=== PATIENT | male | born 1940 | race Caucasian/White ===

== ENCOUNTER 2021-06-24 19:52 | Inpatient (IN) | payer MEDICARE ==
[2021-06-24] MEDS ORDERED: ETOMIDATE 2 MG/ML 10 ML VIAL IVP STA ×2 (20:04→20:13)
[2021-06-24] MEDS ORDERED: NOREPINEPHRINE 32 MG in SODIUM CHLORIDE 0.9% 218 ML IV STA (20:17)
[2021-06-24 20:22] LABS: Glucose,Whole Blood 117 mg/dL (75-99)
--- NOTE | 2021-06-24 20:29 | ED ---
CPR HPI - General Chief Complaint: Cardiac Arrest/CPR Stated Complaint: Cardiac Arrest Time Seen by Provider: 06/24/21 20:29 Source: EMS Mode of arrival: EMS - History of Present Illness Initial Comments: Jono is an 81-year-old male with a history of dementia, congestive heart fa ilure with an ejection fraction of 15%, recent hospitalization at [facility] for rhabdomyolysis after being found down in his apartment. Patient was hospitalized apparently for approximately 9 days discharge 3 days ago to [facility]. Today patient's family was at bedside eating with the patient when he became unresponsive. Family states that his eyes became glossed over he opened his mouth and took a gasping breath and was unresponsive. Nursing staff was called to bedside and AED was applied patient received 2 shocks and CPR. Upon arrival of EMS the patient was unresponsive but had a pulse. Patient was transported to our hospital for further evaluation. - Related Data Allergies Allergy/AdvReac Type Severity Reaction Status Date / Time Penicillins Allergy Unknown Verified 06/24/21 20:03 Review of Systems ROS Statement: Those systems with pertinent positive or pertinent negative responses have been documented in the HPI. ROS Other: All systems not noted in ROS Statement are negative. Past Medical History Past Medical History: Unable to Obtain History of Any Multi-Drug Resistant Organisms: Unobtainable Past Surgical History: Unable to Obtain Past Psychological History: Unable to Obtain Smoking Status: Unknown if ever smoked Past Alcohol Use History: Unable to Obtain Past Drug Use History: Unable to Obtain General Exam - General Exam Comments Initial Comments: Physical Exam GENERAL: Ill-appearing elderly gentleman, unresponsive HENT: Normocephalic, Atraumatic. Oral pharyngeal airway in place, patient is gagging EYES: Subconjunctival hemorrhage of the left eye PULMONARY: Crackles in all lung peraza, crepitus in the right chest CARDIOVASCULAR: Cool extremities with weak pulses Sided echo with an ejection fraction I approximate to be 10% ABDOMEN: Soft No AAA on bedside ultrasound SKIN: Multiple lesions on bilateral arms from IV attempts : Normal External genitalia NEUROLOGIC: Unresponsive, Patient does have a gag reflex and cough however there is no purposeful movement Pupils 2 mm minimally reactive MUSCULOSKELETAL: No obvious deformities PSYCHIATRIC: Unable to assess Course Vital Signs 06/24/21 06/24/21 06/24/21 19:53 20:00 20:15 Temperature 93.1 F L Pulse Rate 60 Respiratory 20 Rate Blood Pressure 79/48 76/45 67/41 O2 Sat by Pulse 89 L 90 L 100 Oximetry 06/24/21 06/24/21 06/24/21 20:46 21:00 21:15 Temperature 98.1 F Pulse Rate 60 60 Respiratory 18 13 Rate Blood Pressure 87/49 85/47 102/56 O2 Sat by Pulse 100 100 Oximetry 06/24/21 06/24/21 06/24/21 21:30 22:00 22:15 Temperature Pulse Rate 60 60 60 Respiratory 10 L 18 18 Rate Blood Pressure 108/59 109/57 106/57 O2 Sat by Pulse 100 100 100 Oximetry 06/24/21 22:30 Temperature Pulse Rate 59 L Respiratory 18 Rate Blood Pressure 147/71 O2 Sat by Pulse 100 Oximetry Procedures - Central Line Placement Right IJ Consent Obtained: emergent situation Patient Placed on Monitor/Pulse Ox: Yes MD Prep: mask, gown, gloves Central Line Prep: Chlorhexidine scrub Ultrasound Used for Placement: Yes Central Line Lumen Inserted: triple Bloods Obtained for Lab: Yes Central Line Position: good blood return, all ports aspirated, flushed, capped, sutured in place with 3-0 nylon Dressing Applied: Tegaderm Post Procedure X-Ray: tip of catheter in good position Patient Tolerated Procedure: well Complications: none - Intubation Sedative: Etomidate Laryngoscope: fiber optic video scope Size: 4 ET Tube Size: 8 ET Tube Uncuffed: No Tube Secured Depth (cm): 24 Tube Secured Location: teeth Tube Placement Confirmation: visualized tube passing through cords, equal breath sounds bilaterally, no breath sounds over epigastrium, confirmation by capnometry Patient Tolerated Procedure: no complications Medical Decision Making - Medical Decision Making Patient was seen and evaluated immediately upon arrival to the emergency department except patient was unresponsive Patient was unresponsive having been defibrillated twice prior to arrival, patient did have a pulse but was hypotensive Patient poor peripheral access. Patient was intubated for airway protection and oxygenation Right IJ central line was placed for access X-ray with pulmonary edema, ET tube in good position, pacemaker wires are noted Is uncertain of IJ placement after chest x-ray so an x-ray of the neck was obtained and did confirm IJ placement was appropriate Patient did have some movement after intubation, appeared to be coughing and was treated with etomidate twice Patient was discussed with Dr. Quinones who is aware of the arrest at [facility] where she is caring for the patient. She will accept the admission whether the pa dylan goes to ICU her family chooses to withdraw care. I discussed patient care with the family, sister, brother in law and nephew are here. They state that when the patient was previously hospitalized 2 weeks ago he did make himself no code did not want CPR did not want a central line however at this time because these to the emergency department and performed family does not wish to withdraw them. However they do state that should the patient decompensate they would not want repeated CPR or defibrillation. Patient to be due to some unremarkable hemorrhaging concern for recurrent falls in the recent past CT head was negative Lab is unremarkable aside from mildly elevated troponin, no significant changes in labs from yesterday Patient care was discussed with Dr. Ana aguirre who recommends heparin for V. fib arrest and admit to the ICU Patient care was discussed with Dr. Marquis who accepts the admission to the ICU At the time of admission it had been 2 hours since patient received any sedating medications. He was not requiring any sedation he was still intubated. There was some movement of the bilateral arms but no Elvis's full movement. Movement was too subtle to determine if it was possibly decerebrate posturing. Propofol was ordered should the patient need it. - Lab Data Result diagrams: 06/24/21 20:24 06/24/21 20:24 Lab Results 06/24/21 06/24/21 06/24/21 Range/Units 20:19 20:23 20:24 WBC 6.3 (3.8-10.6) k/uL RBC 3.52 L (4.30-5.90) m/uL Hgb 11.1 L (13.0-17.5) gm/dL Hct 35.3 L (39.0-53.0) % MCV 100.3 H (80.0-100.0) fL MCH 31.5 (25.0-35.0) pg MCHC 31.4 (31.0-37.0) g/dL RDW 15.0 (11.5-15.5) % Plt Count 256 (150-450) k/uL MPV 8.9 Neutrophils % 75 % Lymphocytes % 13 % Monocytes % 8 % Eosinophils % 1 % Basophils % 1 % Neutrophils # 4.8 (1.3-7.7) k/uL Lymphocytes # 0.9 L (1.0-4.8) k/uL Monocytes # 0.5 (0-1.0) k/uL Eosinophils # 0.1 (0-0.7) k/uL Basophils # 0.0 (0-0.2) k/uL Hypochromasia Slight Macrocytosis Slight PT (9.0-12.0) sec INR (<1.2) APTT (22.0-30.0) sec D-Dimer (<0.60) mg/L FEU Sample Site ABG pH (7.35-7.45) ABG pCO2 (35-45) mmHg ABG pO2 (83-108) mmHg ABG HCO3 (21-25) mmol/L ABG Total CO2 (19-24) mmol/L ABG O2 Saturation (94-97) % ABG Base Excess mmol/L Aly Test VBG pH 7.37 (7.31-7.41) VBG pCO2 51 (37-51) mmHg VBG HCO3 29 H (24-28) mmol/L FiO2 % Sodium (137-145) mmol/L Potassium (3.5-5.1) mmol/L Chloride (98-107) mmol/L Carbon Dioxide (22-30) mmol/L Anion Gap mmol/L BUN (9-20) mg/dL Creatinine (0.66-1.25) mg/dL Est GFR (CKD-EPI)AfAm (>60 ml/min/1.73 sqM) Est GFR (CKD-EPI)NonAf (>60 ml/min/1.73 sqM) Glucose (74-99) mg/dL POC Glucose (mg/dL) 117 H (75-99) mg/dL POC Glu [employer] ID Plasma Lactic Acid Osito (0.7-2.0) mmol/L Calcium (8.4-10.2) mg/dL Magnesium (1.6-2.3) mg/dL Total Bilirubin (0.2-1.3) mg/dL AST (17-59) U/L ALT (4-49) U/L Alkaline Phosphatase (38-126) U/L Troponin I (0.000-0.034) ng/mL Total Protein (6.3-8.2) g/dL Albumin (3.5-5.0) g/dL 07/24/21 07/24/21 07/24/21 Range/Units 20:24 20:24 20:24 WBC (3.8-10.6) k/uL RBC (4.30-5.90) m/uL Hgb (13.0-17.5) gm/dL Hct (39.0-53.0) % MCV (80.0-100.0) fL MCH (25.0-35.0) pg MCHC (31.0-37.0) g/dL RDW (11.5-15.5) % Plt Count (150-450) k/uL MPV Neutrophils % % Lymphocytes % % Monocytes % % Eosinophils % % Basophils % % Neutrophils # (1.3-7.7) k/uL Lymphocytes # (1.0-4.8) k/uL Monocytes # (0-1.0) k/uL Eosinophils # (0-0.7) k/uL Basophils # (0-0.2) k/uL Hypochromasia Macrocytosis PT 36.5 H (9.0-12.0) sec INR 3.8 H (<1.2) APTT 30.2 H (22.0-30.0) sec D-Dimer >34.10 H (<0.60) mg/L FEU Sample Site ABG pH (7.35-7.45) ABG pCO2 (35-45) mmHg ABG pO2 (83-108) mmHg ABG HCO3 (21-25) mmol/L ABG Total CO2 (19-24) mmol/L ABG O2 Saturation (94-97) % ABG Base Excess mmol/L Aly Test VBG pH (7.31-7.41) VBG pCO2 (37-51) mmHg VBG HCO3 (24-28) mmol/L FiO2 % Sodium 142 (137-145) mmol/L Potassium 3.6 (3.5-5.1) mmol/L Chloride 106 (98-107) mmol/L Carbon Dioxide 33 H (22-30) mmol/L Anion Gap 3 mmol/L BUN 32 H (9-20) mg/dL Creatinine 0.92 (0.66-1.25) mg/dL Est GFR (CKD-EPI)AfAm >90 (>60 ml/min/1.73 sqM) Est GFR (CKD-EPI)NonAf 78 (>60 ml/min/1.73 sqM) Glucose 118 H (74-99) mg/dL POC Glucose (mg/dL) (75-99) mg/dL POC Glu [employer] ID Plasma Lactic Acid Osito (0.7-2.0) mmol/L Calcium 8.0 L (8.4-10.2) mg/dL Magnesium 2.1 (1.6-2.3) mg/dL Total Bilirubin 1.1 (0.2-1.3) mg/dL AST 118 H (17-59) U/L ALT 48 (4-49) U/L Alkaline Phosphatase 93 (38-126) U/L Troponin I 0.112 H* (0.000-0.034) ng/mL Total Protein 5.7 L (6.3-8.2) g/dL Albumin 2.3 L (3.5-5.0) g/dL 06/24/21 06/24/21 Range/Units 20:24 21:25 WBC (3.8-10.6) k/uL RBC (4.30-5.90) m/uL Hgb (13.0-17.5) gm/dL Hct (39.0-53.0) % MCV (80.0-100.0) fL MCH (25.0-35.0) pg MCHC (31.0-37.0) g/dL RDW (11.5-15.5) % Plt Count (150-450) k/uL MPV Neutrophils % % Lymphocytes % % Monocytes % % Eosinophils % % Basophils % % Neutrophils # (1.3-7.7) k/uL Lymphocytes # (1.0-4.8) k/uL Monocytes # (0-1.0) k/uL Eosinophils # (0-0.7) k/uL Basophils # (0-0.2) k/uL Hypochromasia Macrocytosis PT (9.0-12.0) sec INR (<1.2) APTT (22.0-30.0) sec D-Dimer (<0.60) mg/L FEU Sample Site IVANHOE ABG pH 7.36 (7.35-7.45) ABG pCO2 53 H (35-45) mmHg ABG pO2 229 H (83-108) mmHg ABG HCO3 30 H (21-25) mmol/L ABG Total CO2 32 H (19-24) mmol/L ABG O2 Saturation 99.0 H (94-97) % ABG Base Excess 5.0 mmol/L Aly Test Yes VBG pH (7.31-7.41) VBG pCO2 (37-51) mmHg VBG HCO3 (24-28) mmol/L FiO2 100 % Sodium (137-145) mmol/L Potassium (3.5-5.1) mmol/L Chloride (98-107) mmol/L Carbon Dioxide (22-30) mmol/L Anion Gap mmol/L BUN (9-20) mg/dL Creatinine (0.66-1.25) mg/dL Est GFR (CKD-EPI)AfAm (>60 ml/min/1.73 sqM) Est GFR (CKD-EPI)NonAf (>60 ml/min/1.73 sqM) Glucose (74-99) mg/dL POC Glucose (mg/dL) (75-99) mg/dL POC Glu [employer] ID Plasma Lactic Acid Osito 1.6 (0.7-2.0) mmol/L Calcium (8.4-10.2) mg/dL Magnesium (1.6-2.3) mg/dL Total Bilirubin (0.2-1.3) mg/dL AST (17-59) U/L ALT (4-49) U/L Alkaline Phosphatase (38-126) U/L Troponin I (0.000-0.034) ng/mL Total Protein (6.3-8.2) g/dL Albumin (3.5-5.0) g/dL Critical Care Time Critical Care Time: Yes Total Critical Care Time: 45 Critical Care Time: Critical care time was exclusive of separately billable procedures and treating other patients and teaching time. Critical care was necessary to treat or prevent imminent or life-threatening deterioration. Given the critical condition in which the patient arrived, the patient was immediately assessed by myself and the nurse, and cardiac monitoring initiated due to the potential for rapid decompensation of the patient's clinical condition. During the course of the patients stay, I spent a considerable amount of time at the bedside performing serial re-evaluations of the patient's hemodynamic and clinical status because of the recognized potential threat to life or limb in this condition. I then had a chance to review not only all of the available current laboratory and radiographic studies obtained today, but I also reviewed old records available to me at the time. Additionally, any ancillary information available including claims representative records were reviewed. Sequential vital signs were obtained. Disposition Clinical Impression: Cardiac arrest with ventricular fibrillation Disposition: ADMITTED IP TO THIS HOSP Condition: Critical Is patient prescribed a controlled substance at d/c from ED?: No
[2021-06-24 20:40] LABS: VBG PH 7.37 (7.31-7.41)
[2021-06-24 20:44] LABS: ALT 48 U/L (4-49); AST 118 U/L (17-59); African American GFR (CKD) >90 (>60 ml/min/1.73 sqM); Albumin 2.3 g/dL (3.5-5.0); Alkaline Phosphatase 93 U/L (38-126); Anion Gap 3 mmol/L; Blood Urea Nitrogen 32 mg/dL (9-20); Carbon Dioxide 33 mmol/L (22-30); Chloride 106 mmol/L (98-107); Glucose 118 mg/dL (74-99); Magnesium 2.1 mg/dL (1.6-2.3); Non-African American GFR(CKD) 78 (>60 ml/min/1.73 sqM); Potassium 3.6 mmol/L (3.5-5.1); Sodium 142 mmol/L (137-145); Total Bilirubin 1.1 mg/dL (0.2-1.3); Total Protein 5.7 g/dL (6.3-8.2)
--- NOTE | 2021-06-24 20:54 | XR ---
EXAMINATION TYPE: XR chest 1V portable DATE OF EXAM: 06/24/2021 COMPARISON: NONE HISTORY: Line placement TECHNIQUE: Single view FINDINGS: Heart is enlarged. There is right jugular catheter with the tip in the superior vena cava. There is endotracheal tube 5 cm from the alfredo. There is nasogastric tube looped in the stomach. The re is pulmonary interstitial edema. There is slight blunting of the costophrenic angles. There is lef t axillary pacemaker. IMPRESSION: Congestive heart failure with pulmonary edema. Tubing in good position.
--- NOTE | 2021-06-24 20:56 | XR ---
EXAMINATION TYPE: XR cervical spine 1V DATE OF EXAM: 06/24/2021 COMPARISON: NONE HISTORY: Line placement TECHNIQUE: Single view FINDINGS: A single frontal view of the cervical spine shows endotracheal tube and right jugular ab[address] ter. There is nasogastric tube. IMPRESSION: Right jugular catheter appears to have the tip in the superior vena cava. No pneumothorax .
[2021-06-24 20:57] LABS: INR 3.8 (<1.2); Partial Thromboplastin Time 30.2 sec (22.0-30.0); Prothrombin Time 36.5 sec (9.0-12.0)
[2021-06-24 21:10] LABS: Basophils % (A) 1 %; Eosinophils # (A) 0.1 k/uL (0-0.7); Eosinophils % (A) 1 %; HCT 35.3 % (39.0-53.0); HGB 11.1 gm/dL (13.0-17.5); Hypochromasia Slight; Lymphocytes # (A) 0.9 k/uL (1.0-4.8); Lymphocytes % (A) 13 %; MCH 31.5 pg (25.0-35.0); MCHC 31.4 g/dL (31.0-37.0); MCV 100.3 fL (80.0-100.0); Macrocytosis Slight; Mean Platelet Volume 8.9; Monocytes # (A) 0.5 k/uL (0-1.0); Monocytes % (A) 8 %; Neutrophils # (A) 4.8 k/uL (1.3-7.7); Neutrophils % (A) 75 %; Platelet Count 256 k/uL (150-450); RBC 3.52 m/uL (4.30-5.90); WBC 6.3 k/uL (3.8-10.6)
--- NOTE | 2021-06-24 21:16 | CT ---
EXAMINATION TYPE: CT brain wo con DATE OF EXAM: 06/24/2021 COMPARISON: None HISTORY: Found unresponsive. CT DLP: 1231.4 mGycm Automated exposure control for dose reduction was used. There is cerebral atrophy. There is no mass effect nor midline shift. There is no sign of intracrania l hemorrhage. The calvarium is intact. There is normal aeration of the mastoid sinuses. IMPRESSION: Cerebral atrophy. No acute intracranial abnormality.
[2021-06-24 21:40] LABS: Allen Test Performed? Yes
[2021-06-24 21:42] LABS: ABG HCO3 30 mmol/L (21-25); ABG PCO2 53 mmHg (35-45); ABG PH 7.36 (7.35-7.45); ABG PO2 229 mmHg (83-108); ABG TCO2 32 mmol/L (19-24)
[2021-06-24] MEDS ORDERED: NALOXONE 0.4 MG/ML 1 ML VIAL IV PRN (22:10)
[2021-06-24] MEDS ORDERED: HEPARIN SODIUM 1,000 UN/ML (10ML VL) IV PRN (22:52)
[2021-06-24] MEDS ORDERED: HEPARIN SODIUM 1,000 UN/ML (10ML VL) IV ONE (22:52)
[2021-06-24] MEDS: HEPARIN SOD,PORK IN 0.45% NACL 25,000 UNIT in 0.45% NACL 1 250ML.BAG IV SCH (23:14)
[2021-06-25 05:21] LABS: Prothrombin Time 55.1 sec (9.0-12.0)
[2021-06-25 05:26] LABS: Basophils # (A) 0.1 k/uL (0-0.2); Basophils % (A) 1 %; Eosinophils # (A) 0.1 k/uL (0-0.7); Eosinophils % (A) 1 %; HCT 37.3 % (39.0-53.0); HGB 11.4 gm/dL (13.0-17.5); Hypochromasia Moderate; Lymphocytes # (A) 1.1 k/uL (1.0-4.8); Lymphocytes % (A) 8 %; MCHC 30.6 g/dL (31.0-37.0); MCV 101.4 fL (80.0-100.0); Macrocytosis Slight; Mean Platelet Volume 8.8; Monocytes % (A) 7 %; Neutrophils # (A) 12.1 k/uL (1.3-7.7); Neutrophils % (A) 83 %; Platelet Count 238 k/uL (150-450); RBC 3.68 m/uL (4.30-5.90); WBC 14.5 k/uL (3.8-10.6)
[2021-06-25 05:42] LABS: INR 5.7 (<1.2); Partial Thromboplastin Time 109.1 sec (22.0-30.0)
[2021-06-25 06:16] LABS: Glucose,Whole Blood 107 mg/dL (75-99)
[2021-06-25] MEDS: HEPARIN SOD,PORK IN 0.45% NACL 25,000 UNIT in 0.45% NACL 1 250ML.BAG IV SCH (06:41)
[2021-06-25 07:40] VITALS: TEMP 99.1
[2021-06-25] MEDS ORDERED: PANTOPRAZOLE 40 MG/10 ML VIAL IV SCH (09:00)
--- NOTE | 2021-06-25 10:17 | P.CNPUL ---
History of Present Illness Consult date: 06/25/21 Requesting physician: Dottie Quinones Reason for consult: other Chief complaint: Witnessed cardiac arrest. History of present illness: Pulmonary consult dated 06/25/2021. 81-year-old male, seen by Dr. Denny in the emergency room on June 24. The patient apparently had a witnessed cardiac arrest, at one of the local nursing homes. 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 The patient was hospitalized for about 9 days, and is been at the [facility] for about 3 days. Apparently, the patient became unresponsive, when the family members are sitting at the bedside with the patient. Nursing staff was called to the bedside, and the automatic external defibrillator was applied and the patient received 2 shocks. By the time EMS arrived, the patient was unresponsive but did have a pulse. The patient was transported to the hospital for further evaluation. The patient was emergently intubated in the emergency department with a #8 endotracheal tube. Also, a central line was placed by the ER physician. After the fact, it was determined that the patient was a DO NOT RESUSCITATE. The family this point did not want to withdraw life support, it did not want to escalate life support either. I did speak to Dr. Denny last night on the phone. Currently, the patient remains on the mechanical ventilator. The patient is on the volume assist control mode rate 18, tidal volume 500, FiO2 50%, and PEEP of 5. Blood gases done at the same settings, but 100%, show a PaO2 of 229, a pCO2 of 53, and pH 7.36. The patient is on IV heparin via weightbase protocol, and norepinephrine at 0.21 mcg/kg/m. Recent laboratory data includes a white count 14.5, hemoglobin 11.4, hematocrit 37.3, and platelet count 238,000. PTT is 55.1, INR is 5.7, and PTT is 109.1. Sodium 142, potassium 3.6, chlorides 106, CO2 33, anion gap 3, BUN 32, creatinine 0.92, with a troponin of 0.112. Albumin is 2.3. Chest x-rays consistent with fluid overload/CHF. Head CT was negative. Review of Systems A 14 point review of systems cannot be obtained. The patient is intubated and mechanically ventilated. Past Medical History Past Medical History: Unable to Obtain History of Any Multi-Drug Resistant Organisms: Unobtainable Past Surgical History: Unable to Obtain Past Psychological History: Unable to Obtain Smoking Status: Unknown if ever smoked Past Alcohol Use History: Unable to Obtain Past Drug Use History: Unable to Obtain Medications and Allergies Home Medications Medication Instructions Recorded Confirmed Type Amiodarone HCl [Pacerone] 200 mg PO BID@0900,209906/25/21 06/25/21 History Aspirin EC [Ecotrin Low Dose] 81 mg PO DAILY@0806/25/21 06/25/21 History Dorzolamide/Timolol/Pf 1 drop BOTH EYES BID@09,209906/25/21 06/25/21 History [Dorzolamide 2%-Timolol 0.5%] Enalapril Maleate 5 mg PO BID@0900,209906/25/21 06/25/21 History Folic Acid 1 mg PO DAILY@0906/25/21 06/25/21 History Furosemide [Lasix] 40 mg PO DAILY@0606/25/21 06/25/21 History Metoprolol Succinate (ER) [Toprol 100 mg PO BID@0900,209906/25/21 06/25/21 History Xl] Multivitamins, Thera [Multivitamin 1 tab PO DAILY@0906/25/21 06/25/21 History (formulary)] Thiamine HCl [Vitamin B-1] 100 mg PO DAILY@0906/25/21 06/25/21 History Warfarin [Coumadin] 5 mg PO SUTUWETHSA@209906/25/21 06/25/21 History Warfarin [Coumadin] 10 mg PO MOFR@209906/25/21 06/25/21 History Allergies Allergy/AdvReac Type Severity Reaction Status Date / Time Penicillins Allergy Unknown Verified 06/25/21 08:00 Physical Exam Osteopathic Statement: *. No significant issues noted on an osteopathic structural exam other than those noted in the History and Physical/Consult. Vitals: Vital Signs Temp Pulse Resp BP Pulse Ox 06/25/21 09:30 60 18 101/49 99 06/25/21 08:37 60 18 106/49 100 06/25/21 07:39 99.1 F 60 22 96/47 100 06/25/21 07:00 60 88/45 100 06/25/21 06:33 60 96/54 100 06/25/21 06:00 60 18 99/49 100 06/25/21 05:30 60 18 108/57 100 06/25/21 05:00 60 14 77/43 100 06/25/21 04:52 60 12 96/52 100 06/25/21 04:30 76/43 06/25/21 04:00 60 15 82/49 100 06/25/21 03:00 60 12 99/55 100 06/25/21 02:00 60 14 101/54 94 L 06/25/21 01:00 60 14 112/57 94 L 06/25/21 00:00 60 15 117/56 100 06/24/21 23:16 60 18 79/45 100 06/24/21 23:05 60 18 81/48 100 06/24/21 23:00 60 18 80/45 99 06/24/21 22:45 60 18 81/47 100 06/24/21 22:30 59 L 18 147/71 100 06/24/21 22:15 60 18 106/57 100 06/24/21 22:00 60 18 109/57 100 06/24/21 21:30 60 10 L 108/59 100 06/24/21 21:15 60 13 102/56 100 06/24/21 21:00 85/47 06/24/21 20:46 98.1 F 60 18 87/49 100 06/24/21 20:15 67/41 100 06/24/21 20:00 76/45 90 L 06/24/21 19:53 93.1 F L 60 20 79/48 89 L Intake and Output 06/24/21 06/25/21 06/25/21 22:59 06:59 14:59 Intake Total 1.248 107.306 11.868 Output Total 590 400 Balance 1.248 -482.694 -388.132 Intake: Intake, IV Titration 1.248 107.306 11.868 Amount Heparin Sod,Pork in 0.45% 70 NaCl 25,000 unit In 0.45 % NaCl 1 250ml.bag @ 12 UNITS/KG/HR 9.396 mls/hr IV .Q24H [facility] Rx#: [id number] Norepinephrine 32 mg In 1.248 37.306 11.868 Sodium Chloride 0.9% 218 ml @ 0.05 MCG/KG/MIN 1. 835 mls/hr IV .Q24H [facility] Rx#:[id number] Output: Urine 590 400 Other: Weight 78.3 kg No acute distress, poorly responsive, with an orally placed endotracheal tube and NG tube. HEENT examination is grossly unremarkable. Neck supple. Full range of motion. No adenopathy thyromegaly or neck vein distention. A right-sided central line is noted. Cardiovascular examination reveals regular rhythm rate. S1-S2 normal. No S3 or S4. No discernible murmur noted. Heart sounds are very distant. Heart rate 59 bpm. Lungs reveal coarse rhonchi, and crackles. Breath sounds equal. No wheezes. Abdomen soft without bowel sounds. No masses. Extremities are intact. No cyanosis clubbing or edema. Skin is without rash or lesion. Neurologic examination reveals a patient who is poorly responsive/nonresponsive. Results - Laboratory Findings CBC and BMP: 06/25/21 04:34 06/24/21 20:24 ABG ABG pH 7.36 (7.35-7.45) 06/24/21 21:25 ABG pCO2 53 mmHg (35-45) H 06/24/21 21:25 ABG pO2 229 mmHg (83-108) H 06/24/21 21:25 ABG O2 Saturation 99.0 % (94-97) H 06/24/21 21:25 PT/INR, D-dimer PT 55.1 sec (9.0-12.0) H 06/25/21 04:34 INR 5.7 (<1.2) H* 06/25/21 04:34 D-Dimer >34.10 mg/L FEU (<0.60) H 06/24/21 20:24 Abnormal lab findings: Abnormal Labs 06/24/21 06/24/21 06/24/21 20:19 20:23 20:24 WBC RBC 3.52 L Hgb 11.1 L Hct 35.3 L MCV 100.3 H MCHC Neutrophils # Lymphocytes # 0.9 L PT INR APTT D-Dimer ABG pCO2 ABG pO2 ABG HCO3 ABG Total CO2 ABG O2 Saturation VBG HCO3 29 H Carbon Dioxide BUN Glucose POC Glucose (mg/dL) 117 H Calcium AST Troponin I Total Protein Albumin 06/24/21 06/24/21 06/24/21 20:24 20:24 20:24 WBC RBC Hgb Hct MCV MCHC Neutrophils # Lymphocytes # PT 36.5 H INR 3.8 H APTT 30.2 H D-Dimer >34.10 H ABG pCO2 ABG pO2 ABG HCO3 ABG Total CO2 ABG O2 Saturation VBG HCO3 Carbon Dioxide 33 H BUN 32 H Glucose 118 H POC Glucose (mg/dL) Calcium 8.0 L AST 118 H Troponin I 0.112 H* Total Protein 5.7 L Albumin 2.3 L 06/24/21 06/25/21 06/25/21 21:25 04:34 04:34 WBC 14.5 H RBC 3.68 L Hgb 11.4 L Hct 37.3 L MCV 101.4 H MCHC 30.6 L Neutrophils # 12.1 H Lymphocytes # PT 55.1 H INR 5.7 H* APTT 109.1 H* D-Dimer ABG pCO2 53 H ABG pO2 229 H ABG HCO3 30 H ABG Total CO2 32 H ABG O2 Saturation 99.0 H VBG HCO3 Carbon Dioxide BUN Glucose POC Glucose (mg/dL) Calcium AST Troponin I Total Protein Albumin 06/25/21 06:14 WBC RBC Hgb Hct MCV MCHC Neutrophils # Lymphocytes # PT INR APTT D-Dimer ABG pCO2 ABG pO2 ABG HCO3 ABG Total CO2 ABG O2 Saturation VBG HCO3 Carbon Dioxide BUN Glucose POC Glucose (mg/dL) 107 H Calcium AST Troponin I Total Protein Albumin - Diagnostic Findings Chest x-ray: image reviewed Assessment and Plan Assessment: Out of hospital ventricular fibrillation arrest, status post intubation in the emergency department, June 24. Rule out anoxic encephalopathy. History of congestive heart failure. Rule out myocardial ischemia. Suspected Coumadin induced coagulopathy. History of dementia. History of severe cardiomyopathy. Ejection fraction of 15%. History of recent hospitalization [facility] for rhabdomyolysis, secondary to a fall. Plan: Plan dated 06/25/2021. The patient is slated to go to the intensive care unit. Apparently the family this point would like to continue with life support even though the patient previously was DO NOT RESUSCITATE. They would not want any additional resuscitation or defibrillation cardioversion should the patient have a arrhythmia. The patient is currently in the emergency department. Staffing issues preclude the patient moving to the ICU. Medications are reviewed. Additional recommendations and suggestions are forthcoming. Prognosis is guarded. Time with Patient: Greater than 30
--- NOTE | 2021-06-25 10:58 | P.HPIM ---
History of Present Illness H&P Date: 06/25/21 Chief Complaint: Unresponsiveness, cardiac arrest, requiring defibrillator This is an 81-year-old pleasant gentleman who was recently transferred to [facility] in the [place], he was recently admitted at [facility], June 12-, for acute syncopal event and noncompliance, chf. He is followed normally by [facility] charge nurse, and he has an ICD, from the last admission, they have noticed that his digoxin and Lasix were empty and pt play around whether he would take his Lasix or Miss his Lasix for that day., he was admitted for rhabdomyolysis, with a previous CPK of 4700, and elevation of ALT total bili and a creatinine of 1.69. He also has pulmonary edema based on last CT, in June 12, with acid with chronic bladder obstruction as well, and pulmonary artery hypertension. Not much of the history can be obtained at that time, except that he requires 14 standard drinks per week. Not a smoker, previously quit, and that he lives alone, with multifocal falls prior to his recent admission at [facility] for subacute rehab. CODE STATUS was DO NOT RESUSCITATE. However with the CODE STATUS on June 22, this was not signed I family members, and was defaulted to full code at that time. The physician order for life support from our facility to facility is not a legal document for us to follow at the long-term. Past medical history obtained, including atrial fibrillation, AV block, CK D, right bundle branch block, valvular heart disease, hypertension, with dual- chamber [employer] pacemaker placement, and a mitral valve repair. He is on Coumadin, Patient was noted to be fed by family members, as the patient was confused as his baseline status, he took 2 bites, thereafter became unresponsive at 1900, and was unconscious unresponsive with no signs of bleeding, CPR begun, and code was called, a AED applied with suctioning of secretions. Compressions and shocks were continued until EMS arrived at 0, at 1924, the patient was bleeding again, with a pulse of 64, and was subsequently transferred to the emergency room. EMS was called in, the family was made aware,. In emergency room, patient was seen already intubated, family requests that should he have any cardiac event or cardiac arrest, that we should abandon any CPR, or chemical resuscitation. Patient is admitted to ICU, with Dr. Lee on consult, cardiol ogy consult. Labs in the ER, shows pH of 7.36, pCO2 of 53, PaO2 of 229, total CO2 of 32 bicarb of 30, INR 3.8 WBC count of 14.5, hemoglobin 11.4, troponin of 0.112, albumin low at 2.7, glucose of 117, no pro-calcitonin was done chest x- ray CHF with pulmonary edema, EKG ventricle paced rhythm, heart rate of 60 Review of Systems ROS unobtainable: due to endotracheal tube Constitutional: Reports as per HPI Ears, nose, mouth and throat: Reports as per HPI Cardiovascular: Reports as per HPI Gastrointestinal: Reports as per HPI Genitourinary: Reports as per HPI Musculoskeletal: Reports as per HPI Integumentary: Reports as per HPI Neurological: Reports as per HPI Psychiatric: Reports as per HPI Endocrine: Reports as per HPI Hematologic/Lymphatic: Reports as per HPI Allergic/Immunologic: Reports as per HPI Past Medical History Past Medical History: Unable to Obtain, Heart Failure, Hypertension, Memory Impairment, Vascular Disorder (Valve disorder) History of Any Multi-Drug Resistant Organisms: Unobtainable Past Surgical History: Unable to Obtain Additional Past Surgical History / Comment(s): Mitral valve repair, [employer] pacemaker Past Psychological History: Unable to Obtain Smoking Status: Former smoker, Unknown if ever smoked Past Alcohol Use History: Unable to Obtain Additional Past Alcohol Use History / Comment(s): 14 standard drinks a week - Past Family History Father Family Medical History: No Reported History Mother Family Medical History: Diabetes Mellitus, Hypertension Medications and Allergies Home Medications Medication Instructions Recorded Confirmed Type Amiodarone HCl [Pacerone] 200 mg PO BID@09,209906/25/21 06/25/21 History Aspirin EC [Ecotrin Low Dose] 81 mg PO DAILY@0806/25/21 06/25/21 History Dorzolamide/Timolol/Pf 1 drop BOTH EYES BID@899,209906/25/21 06/25/21 History [Dorzolamide 2%-Timolol 0.5%] Enalapril Maleate 5 mg PO BID@0900,209906/25/21 06/25/21 History Folic Acid 1 mg PO DAILY@89906/25/21 06/25/21 History Furosemide [Lasix] 40 mg PO DAILY@0606/25/21 06/25/21 History Metoprolol Succinate (ER) [Toprol 100 mg PO BID@0900,209906/25/21 06/25/21 History Xl] Multivitamins, Thera [Multivitamin 1 tab PO DAILY@89906/25/21 06/25/21 History (formulary)] Thiamine HCl [Vitamin B-1] 100 mg PO DAILY@89906/25/21 06/25/21 History Warfarin [Coumadin] 5 mg PO SUTUWETHSA@209906/25/21 06/25/21 History Warfarin [Coumadin] 10 mg PO MOFR@209906/25/21 06/25/21 History Allergies Allergy/AdvReac Type Severity Reaction Status Date / Time Penicillins Allergy Unknown Verified 06/25/21 08:00 Physical Exam Vitals: Vital Signs Temp Pulse Resp BP Pulse Ox 06/25/21 10:07 59 L 18 97/49 98 06/25/21 09:30 60 18 101/49 99 06/25/21 08:37 60 18 106/49 100 06/25/21 07:39 99.1 F 60 22 96/47 100 06/25/21 07:00 60 88/45 100 06/25/21 06:33 60 96/54 100 06/25/21 06:00 60 18 99/49 100 06/25/21 05:30 60 18 108/57 100 06/25/21 05:00 60 14 77/43 100 06/25/21 04:52 60 12 96/52 100 06/25/21 04:30 76/43 06/25/21 04:00 60 15 82/49 100 06/25/21 03:00 60 12 99/55 100 06/25/21 02:00 60 14 101/54 94 L 06/25/21 01:00 60 14 112/57 94 L 06/25/21 00:00 60 15 117/56 100 06/24/21 23:16 60 18 79/45 100 06/24/21 23:05 60 18 81/48 100 06/24/21 23:00 60 18 80/45 99 06/24/21 22:45 60 18 81/47 100 06/24/21 22:30 59 L 18 147/71 100 06/24/21 22:15 60 18 106/57 100 06/24/21 22:00 60 18 109/57 100 06/24/21 21:30 60 10 L 108/59 100 06/24/21 21:15 60 13 102/56 100 06/24/21 21:00 85/47 06/24/21 20:46 98.1 F 60 18 87/49 100 06/24/21 20:15 67/41 100 06/24/21 20:00 76/45 90 L 06/24/21 19:53 93.1 F L 60 20 79/48 89 L Intake and Output 06/24/21 06/25/21 06/25/21 22:59 06:59 14:59 Intake Total 1.248 107.306 11.868 Output Total 590 400 Balance 1.248 -482.694 -388.132 Intake: Intake, IV Titration 1.248 107.306 11.868 Amount Heparin Sod,Pork in 0.45% 70 NaCl 25,000 unit In 0.45 % NaCl 1 250ml.bag @ 12 UNITS/KG/HR 9.396 mls/hr IV .Q24H [facility]A Rx#: [id number] Norepinephrine 32 mg In 1.248 37.306 11.868 Sodium Chloride 0.9% 218 ml @ 0.05 MCG/KG/MIN 1. 835 mls/hr IV .Q24H STA Rx#:[id number] Output: Urine 590 400 Other: Weight 78.3 kg - Constitutional In ventilator machine, PEEP of 6 General appearance: cooperative, mild distress - EENT Eyes: anicteric sclerae, EOMI, PERRLA, normal appearance ENT: NA/AT, normal oropharynx (Tracheostomy) - Respiratory Respiratory: bilateral: diminished - Cardiovascular Rhythm: regular Abnormal Heart Sounds: systolic murmur - Gastrointestinal General gastrointestinal: normal bowel sounds, soft - Integumentary Integumentary: decreased turgor, normal - Neurologic Neurologic: CNII-XII intact - Psychiatric Intubated sedated Results CBC & Chem 7: 06/25/21 04:34 06/24/21 20:24 Labs: Abnormal Lab Results - Last 24 Hours (Table) 06/24/21 06/24/21 06/24/21 Range/Units 20:19 20:23 20:24 WBC (3.8-10.6) k/uL RBC 3.52 L (4.30-5.90) m/uL Hgb 11.1 L (13.0-17.5) gm/dL Hct 35.3 L (39.0-53.0) % MCV 100.3 H (80.0-100.0) fL MCHC (31.0-37.0) g/dL Neutrophils # (1.3-7.7) k/uL Lymphocytes # 0.9 L (1.0-4.8) k/uL PT (9.0-12.0) sec INR (<1.2) APTT (22.0-30.0) sec D-Dimer (<0.60) mg/L FEU ABG pCO2 (35-45) mmHg ABG pO2 (83-108) mmHg ABG HCO3 (21-25) mmol/L ABG Total CO2 (19-24) mmol/L ABG O2 Saturation (94-97) % VBG HCO3 29 H (24-28) mmol/L Carbon Dioxide (22-30) mmol/L BUN (9-20) mg/dL Glucose (74-99) mg/dL POC Glucose (mg/dL) 117 H (75-99) mg/dL Calcium (8.4-10.2) mg/dL AST (17-59) U/L Troponin I (0.000-0.034) ng/mL Total Protein (6.3-8.2) g/dL Albumin (3.5-5.0) g/dL 06/24/21 06/24/21 06/24/21 Range/Units 20:24 20:24 20:24 WBC (3.8-10.6) k/uL RBC (4.30-5.90) m/uL Hgb (13.0-17.5) gm/dL Hct (39.0-53.0) % MCV (80.0-100.0) fL MCHC (31.0-37.0) g/dL Neutrophils # (1.3-7.7) k/uL Lymphocytes # (1.0-4.8) k/uL PT 36.5 H (9.0-12.0) sec INR 3.8 H (<1.2) APTT 30.2 H (22.0-30.0) sec D-Dimer >34.10 H (<0.60) mg/L FEU ABG pCO2 (35-45) mmHg ABG pO2 (83-108) mmHg ABG HCO3 (21-25) mmol/L ABG Total CO2 (19-24) mmol/L ABG O2 Saturation (94-97) % VBG HCO3 (24-28) mmol/L Carbon Dioxide 33 H (22-30) mmol/L BUN 32 H (9-20) mg/dL Glucose 118 H (74-99) mg/dL POC Glucose (mg/dL) (75-99) mg/dL Calcium 8.0 L (8.4-10.2) mg/dL AST 118 H (17-59) U/L Troponin I 0.112 H* (0.000-0.034) ng/mL Total Protein 5.7 L (6.3-8.2) g/dL Albumin 2.3 L (3.5-5.0) g/dL 06/24/21 06/25/21 06/25/21 Range/Units 21:25 04:34 04:34 WBC 14.5 H (3.8-10.6) k/uL RBC 3.68 L (4.30-5.90) m/uL Hgb 11.4 L (13.0-17.5) gm/dL Hct 37.3 L (39.0-53.0) % MCV 101.4 H (80.0-100.0) fL MCHC 30.6 L (31.0-37.0) g/dL Neutrophils # 12.1 H (1.3-7.7) k/uL Lymphocytes # (1.0-4.8) k/uL PT 55.1 H (9.0-12.0) sec INR 5.7 H* (<1.2) APTT 109.1 H* (22.0-30.0) sec D-Dimer (<0.60) mg/L FEU ABG pCO2 53 H (35-45) mmHg ABG pO2 229 H (83-108) mmHg ABG HCO3 30 H (21-25) mmol/L ABG Total CO2 32 H (19-24) mmol/L ABG O2 Saturation 99.0 H (94-97) % VBG HCO3 (24-28) mmol/L Carbon Dioxide (22-30) mmol/L BUN (9-20) mg/dL Glucose (74-99) mg/dL POC Glucose (mg/dL) (75-99) mg/dL Calcium (8.4-10.2) mg/dL AST (17-59) U/L Troponin I (0.000-0.034) ng/mL Total Protein (6.3-8.2) g/dL Albumin (3.5-5.0) g/dL 06/25/21 Range/Units 06:14 WBC (3.8-10.6) k/uL RBC (4.30-5.90) m/uL Hgb (13.0-17.5) gm/dL Hct (39.0-53.0) % MCV (80.0-100.0) fL MCHC (31.0-37.0) g/dL Neutrophils # (1.3-7.7) k/uL Lymphocytes # (1.0-4.8) k/uL PT (9.0-12.0) sec INR (<1.2) APTT (22.0-30.0) sec D-Dimer (<0.60) mg/L FEU ABG pCO2 (35-45) mmHg ABG pO2 (83-108) mmHg ABG HCO3 (21-25) mmol/L ABG Total CO2 (19-24) mmol/L ABG O2 Saturation (94-97) % VBG HCO3 (24-28) mmol/L Carbon Dioxide (22-30) mmol/L BUN (9-20) mg/dL Glucose (74-99) mg/dL POC Glucose (mg/dL) 107 H (75-99) mg/dL Calcium (8.4-10.2) mg/dL AST (17-59) U/L Troponin I (0.000-0.034) ng/mL Total Protein (6.3-8.2) g/dL Albumin (3.5-5.0) g/dL Thrombosis Risk Factor Assmnt - DVT/VTE Prophylaxis DVT/VTE Prophylaxis: Pharmacologic Prophylaxis ordered Assessment and Plan Plan: 1. Cardiac arrest with ventricular fibrillation, status post intubation on 724, in the emergency room and unresponsiveness, while eating, known history of pacemaker implantation, currently paced rhythm, with congestive heart failure changes, and possible aspiration pneumonitis. There was suctioning performed on site, Ativan, with 2 defibrillations, until life-support can come into EMS. Patient was a DO NOT RESUSCITATE at [facility], however the papers were not signed by family members, and was defaulted to a full code until formal papers are signed by family. Patient cannot make medical decisions for the life- support status. 2. Acute hypoxemic respiratory failure, requiring mechanical ventilator, with assist control, 18, tidal volume 500, P if of 5, FiO2 50% 3. SIRS, rule out aspiration pneumonitis at the time of event, patient requires Levophed for septic shock. 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 9 Unresponsiveness, rule out anoxic encephalopathy, 10 CODE STATUS DO NOT RESUSCITATE Chronic anticoagulation with Coumadin currently on IV heparin GI prophylaxis, on IV Protonix
[2021-06-25] MEDS ORDERED: LEVOFLOXACIN 750MG-D5W PMX 750 MG in DEXTROSE/WATER 1 150ML.BAG IVPB SCH (11:00)
[2021-06-25 11:40] LABS: Magnesium 2.1 mg/dL (1.6-2.3)
[2021-06-25] MEDS ORDERED: IPRATROPIUM-ALBUTEROL 3 ML NEB INHALATION SCH (12:00)
--- NOTE | 2021-06-25 13:56 | CONS ---
CONSULTATION Mr. Escudero is an 81-year-old male who had a witnessed cardiac arrest at the retirement. He has a known history of severe cardiomyopathy, was at [facility] for rhabdomyolysis. Became unresponsive and received 2 shocks, came into the emergency room. He is intubated. The patient is NO CODE from here on, according to the notes. The patient was seen in the emergency room. I do not have any prior records on him. I have no history of his prior cardiac status and the etiology of his cardiomyopathy. The patient is intubated, opening his eyes, but no purposeful movement. No review of systems could be obtained. MEDICATION: At home included metoprolol succinate 100 mg twice a day, enalapril 5 mg twice a day, amiodarone 200 mg twice a day, Coumadin, furosemide and aspirin. PHYSICAL EXAMINATION: He is an 81-year-old male, intubated and not following command. Blood pressure 105/40 with a heart rate in 60s. HEAD: Normocephalic. EYES: Sclerae anicteric. NECK: No bruit. LUNGS: Clear to auscultation anteriorly. HEART: Regular heart rate and rhythm. S1, S2. No S3 with a systolic murmur at the base. No diastolic murmur. ABDOMEN: Soft, positive bowel sounds. No organomegaly. EXTREMITIES: No edema. LAB DATA: EKG revealed atrial fibrillation with 100% ventricular pacing. His chest x-ray shows evidence of congestive heart failure. His brain CT shows no acute bleeding. Lab data revealed an INR of 5.7, hemoglobin of 11.4, BUN and creatinine 32 and 0.92. Troponin 0.12. IMPRESSION: 1. Cardiac arrest in a patient with known history of severe cardiomyopathy, according to the available notes, with ventricular fibrillation. 2. 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 3. History of atrial fibrillation with permanent pacemaker implantation. 4. History of dementia. 5. Recent episode of rhabdomyolysis according to the records. RECOMMENDATION: From the cardiac standpoint, will continue supportive care. The patient has chronic atrial fibrillation and he has supratherapeutic INR. His chest x-ray is consistent was congestive heart failure. He has a history of cardiomyopathy. He will be initiated on diuretics. If his pressure is stable, we will initiate the treatment with the beta john. The prognosis is quite poor. Depending on his progress, further recommendation will be made. Thank you for this consult. We will follow with you. MMVIOLETAL / IJN: [id number] /
--- NOTE | 2021-06-25 15:08 | P.PN ---
Subjective Progress Note Date: 06/25/21 as of 14:45 pm the family discussed with me the life support measures that are given to the patient, they have voiced their concern that this is not what the patient would have wished for, they will like to get him off the vent, they do not want to wait for few more days to address any anoxic encephalo[maurizio, the patient has severe cardiomyopathy in the past and would want it all be terminated, the sister and the nephew has expressed this will verbally i have reviewed records from [facility] as well to state that the patient be DNR, we have discussed this with the er physician as there is no power of assistant city attorney papers that is signed, no living will signed, no state appointed court order for me to review. but there are no living immediate family members except the sister. the sister request that a comfortable passing be made. i have the nurse discuss it with the setter up for terminal wean, then comfort care measures be placed with iv morphine drip, comfort care protocol Objective - Vital Signs Vital signs: Vital Signs Temp 99.1 F 06/25/21 07:39 Pulse 62 06/25/21 14:14 Resp 20 06/25/21 14:14 BP 96/51 06/25/21 14:14 Pulse Ox 97 06/25/21 14:14 Intake & Output 06/24/21 06/25/21 06/25/21 18:59 06:59 18:59 Intake Total 108.554 27.676 Output Total 590 400 Balance -481.446 -372.324 Weight 78.3 kg Intake: Intake, IV Titration 108.554 27.676 Amount Heparin Sod,Pork in 0.45% 70 NaCl 25,000 unit In 0.45 % NaCl 1 250ml.bag @ 12 UNITS/KG/HR 9.396 mls/hr IV .Q24H [facility] Rx#: [id number] Norepinephrine 32 mg In 38.554 27.676 Sodium Chloride 0.9% 218 ml @ 0.05 MCG/KG/MIN 1. 835 mls/hr IV .Q24H STA Rx#:[id number] Output: Urine 590 400 - Labs CBC & Chem 7: 06/25/21 04:34 06/24/21 20:24 Labs: Abnormal Lab Results - Last 24 Hours (Table) 07/06/24/21 06/24/21 Range/Units 20:19 20:23 20:24 WBC (3.8-10.6) k/uL RBC 3.52 L (4.30-5.90) m/uL Hgb 11.1 L (13.0-17.5) gm/dL Hct 35.3 L (39.0-53.0) % MCV 100.3 H (80.0-100.0) fL MCHC (31.0-37.0) g/dL Neutrophils # (1.3-7.7) k/uL Lymphocytes # 0.9 L (1.0-4.8) k/uL PT (9.0-12.0) sec INR (<1.2) APTT (22.0-30.0) sec D-Dimer (<0.60) mg/L FEU ABG pCO2 (35-45) mmHg ABG pO2 (83-108) mmHg ABG HCO3 (21-25) mmol/L ABG Total CO2 (19-24) mmol/L ABG O2 Saturation (94-97) % VBG HCO3 29 H (24-28) mmol/L Carbon Dioxide (22-30) mmol/L BUN (9-20) mg/dL Glucose (74-99) mg/dL POC Glucose (mg/dL) 117 H (75-99) mg/dL Calcium (8.4-10.2) mg/dL AST (17-59) U/L Troponin I (0.000-0.034) ng/mL Total Protein (6.3-8.2) g/dL Albumin (3.5-5.0) g/dL 06/24/21 06/24/21 06/24/21 Range/Units 20:24 20:24 20:24 WBC (3.8-10.6) k/uL RBC (4.30-5.90) m/uL Hgb (13.0-17.5) gm/dL Hct (39.0-53.0) % MCV (80.0-100.0) fL MCHC (31.0-37.0) g/dL Neutrophils # (1.3-7.7) k/uL Lymphocytes # (1.0-4.8) k/uL PT 36.5 H (9.0-12.0) sec INR 3.8 H (<1.2) APTT 30.2 H (22.0-30.0) sec D-Dimer >34.10 H (<0.60) mg/L FEU ABG pCO2 (35-45) mmHg ABG pO2 (83-108) mmHg ABG HCO3 (21-25) mmol/L ABG Total CO2 (19-24) mmol/L ABG O2 Saturation (94-97) % VBG HCO3 (24-28) mmol/L Carbon Dioxide 33 H (22-30) mmol/L BUN 32 H (9-20) mg/dL Glucose 118 H (74-99) mg/dL POC Glucose (mg/dL) (75-99) mg/dL Calcium 8.0 L (8.4-10.2) mg/dL AST 118 H (17-59) U/L Troponin I 0.112 H* (0.000-0.034) ng/mL Total Protein 5.7 L (6.3-8.2) g/dL Albumin 2.3 L (3.5-5.0) g/dL 06/24/21 06/25/21 06/25/21 Range/Units 21:25 04:34 04:34 WBC 14.5 H (3.8-10.6) k/uL RBC 3.68 L (4.30-5.90) m/uL Hgb 11.4 L (13.0-17.5) gm/dL Hct 37.3 L (39.0-53.0) % MCV 101.4 H (80.0-100.0) fL MCHC 30.6 L (31.0-37.0) g/dL Neutrophils # 12.1 H (1.3-7.7) k/uL Lymphocytes # (1.0-4.8) k/uL PT 55.1 H (9.0-12.0) sec INR 5.7 H* (<1.2) APTT 109.1 H* (22.0-30.0) sec D-Dimer (<0.60) mg/L FEU ABG pCO2 53 H (35-45) mmHg ABG pO2 229 H (83-108) mmHg ABG HCO3 30 H (21-25) mmol/L ABG Total CO2 32 H (19-24) mmol/L ABG O2 Saturation 99.0 H (94-97) % VBG HCO3 (24-28) mmol/L Carbon Dioxide (22-30) mmol/L BUN (9-20) mg/dL Glucose (74-99) mg/dL POC Glucose (mg/dL) (75-99) mg/dL Calcium (8.4-10.2) mg/dL AST (17-59) U/L Troponin I (0.000-0.034) ng/mL Total Protein (6.3-8.2) g/dL Albumin (3.5-5.0) g/dL 06/25/21 06/25/21 Range/Units 06:14 11:00 WBC (3.8-10.6) k/uL RBC (4.30-5.90) m/uL Hgb (13.0-17.5) gm/dL Hct (39.0-53.0) % MCV (80.0-100.0) fL MCHC (31.0-37.0) g/dL Neutrophils # (1.3-7.7) k/uL Lymphocytes # (1.0-4.8) k/uL PT (9.0-12.0) sec INR (<1.2) APTT 97.5 H (22.0-30.0) sec D-Dimer (<0.60) mg/L FEU ABG pCO2 (35-45) mmHg ABG pO2 (83-108) mmHg ABG HCO3 (21-25) mmol/L ABG Total CO2 (19-24) mmol/L ABG O2 Saturation (94-97) % VBG HCO3 (24-28) mmol/L Carbon Dioxide (22-30) mmol/L BUN (9-20) mg/dL Glucose (74-99) mg/dL POC Glucose (mg/dL) 107 H (75-99) mg/dL Calcium (8.4-10.2) mg/dL AST (17-59) U/L Troponin I (0.000-0.034) ng/mL Total Protein (6.3-8.2) g/dL Albumin (3.5-5.0) g/dL
[2021-06-25] MEDS ORDERED: GLYCOPYRROLATE 0.2 MG/ML 2 ML VIAL IVP PRN (15:11)
[2021-06-25] MEDS ORDERED: MORPHINE SULFATE (100 MG/2 ML) 100 MG in SODIUM CHLORIDE 0.9% 100 ML IV SCH (15:15)
[2021-06-25] MEDS: MORPHINE SULFATE 2 MG/ML SYRINGE IV PRN ×2 (15:20→15:31)
--- NOTE | 2021-06-25 15:50 | ED ---
Medical Decision Making - Medical Decision Making I returned to the ER for subsequent shift, patient remains in ER. The patient has not required any sedation overnight despite being on a ventilator he does occasionally have breaths over the ventilator. Who was present yesterday including his sister, [id number] and nephew as well as additional nieces spouses are at bedside. As discussed yesterday they do not wish to proceed with such aggressive measures and would like to make the patient comfort care. This plan was discussed with the patient's primary care provider Dr. Quinones she confirms the family expressed the desire to them as well. This plan was discussed with gold assayer Dr. Marquis who is in agreement. Comfort care orders were placed, nursing staff and respiratory therapy were notified. Antibiotics pressors were discontinued. Patient was given 4 mg IV morphine and was extubated. Patient was hypotensive but did have spontaneous breaths. He did open his eyes but was not responsive to stimuli. She remained in this condition and was transferred to the floor with comfort care orders. - Lab Data Result diagrams: 06/25/21 04:34 06/24/21 20:24 Lab Results 06/24/21 06/24/21 06/24/21 Range/Units 20:19 20:23 20:24 WBC 6.3 (3.8-10.6) k/uL RBC 3.52 L (4.30-5.90) m/uL Hgb 11.1 L (13.0-17.5) gm/dL Hct 35.3 L (39.0-53.0) % MCV 100.3 H (80.0-100.0) fL MCH 31.5 (25.0-35.0) pg MCHC 31.4 (31.0-37.0) g/dL RDW 15.0 (11.5-15.5) % Plt Count 256 (150-450) k/uL MPV 8.9 Neutrophils % 75 % Lymphocytes % 13 % Monocytes % 8 % Eosinophils % 1 % Basophils % 1 % Neutrophils # 4.8 (1.3-7.7) k/uL Lymphocytes # 0.9 L (1.0-4.8) k/uL Monocytes # 0.5 (0-1.0) k/uL Eosinophils # 0.1 (0-0.7) k/uL Basophils # 0.0 (0-0.2) k/uL Hypochromasia Slight Macrocytosis Slight PT (9.0-12.0) sec INR (<1.2) APTT (22.0-30.0) sec D-Dimer (<0.60) mg/L FEU Sample Site ABG pH (7.35-7.45) ABG pCO2 (35-45) mmHg ABG pO2 (83-108) mmHg ABG HCO3 (21-25) mmol/L ABG Total CO2 (19-24) mmol/L ABG O2 Saturation (94-97) % ABG Base Excess mmol/L Aly Test VBG pH 7.37 (7.31-7.41) VBG pCO2 51 (37-51) mmHg VBG HCO3 29 H (24-28) mmol/L FiO2 % Sodium (137-145) mmol/L Potassium (3.5-5.1) mmol/L Chloride (98-107) mmol/L Carbon Dioxide (22-30) mmol/L Anion Gap mmol/L BUN (9-20) mg/dL Creatinine (0.66-1.25) mg/dL Est GFR (CKD-EPI)AfAm (>60 ml/min/1.73 sqM) Est GFR (CKD-EPI)NonAf (>60 ml/min/1.73 sqM) Glucose (74-99) mg/dL POC Glucose (mg/dL) 117 H (75-99) mg/dL POC Glu Tape Cutting Machine Operator ID Plasma Lactic Acid Osito (0.7-2.0) mmol/L Calcium (8.4-10.2) mg/dL Magnesium (1.6-2.3) mg/dL Total Bilirubin (0.2-1.3) mg/dL AST (17-59) U/L ALT (4-49) U/L Alkaline Phosphatase (38-126) U/L Troponin I (0.000-0.034) ng/mL Total Protein (6.3-8.2) g/dL Albumin (3.5-5.0) g/dL 06/24/21 06/24/21 06/24/21 Range/Units 20:24 20:24 20:24 WBC (3.8-10.6) k/uL RBC (4.30-5.90) m/uL Hgb (13.0-17.5) gm/dL Hct (39.0-53.0) % MCV (80.0-100.0) fL MCH (25.0-35.0) pg MCHC (31.0-37.0) g/dL RDW (11.5-15.5) % Plt Count (150-450) k/uL MPV Neutrophils % % Lymphocytes % % Monocytes % % Eosinophils % % Basophils % % Neutrophils # (1.3-7.7) k/uL Lymphocytes # (1.0-4.8) k/uL Monocytes # (0-1.0) k/uL Eosinophils # (0-0.7) k/uL Basophils # (0-0.2) k/uL Hypochromasia Macrocytosis PT 36.5 H (9.0-12.0) sec INR 3.8 H (<1.2) APTT 30.2 H (22.0-30.0) sec D-Dimer >34.10 H (<0.60) mg/L FEU Sample Site ABG pH (7.35-7.45) ABG pCO2 (35-45) mmHg ABG pO2 (83-108) mmHg ABG HCO3 (21-25) mmol/L ABG Total CO2 (19-24) mmol/L ABG O2 Saturation (94-97) % ABG Base Excess mmol/L Aly Test VBG pH (7.31-7.41) VBG pCO2 (37-51) mmHg VBG HCO3 (24-28) mmol/L FiO2 % Sodium 142 (137-145) mmol/L Potassium 3.6 (3.5-5.1) mmol/L Chloride 106 (98-107) mmol/L Carbon Dioxide 33 H (22-30) mmol/L Anion Gap 3 mmol/L BUN 32 H (9-20) mg/dL Creatinine 0.92 (0.66-1.25) mg/dL Est GFR (CKD-EPI)AfAm >90 (>60 ml/min/1.73 sqM) Est GFR (CKD-EPI)NonAf 78 (>60 ml/min/1.73 sqM) Glucose 118 H (74-99) mg/dL POC Glucose (mg/dL) (75-99) mg/dL POC Glu Tape Cutting Machine Operator ID Plasma Lactic Acid Osito (0.7-2.0) mmol/L Calcium 8.0 L (8.4-10.2) mg/dL Magnesium 2.1 (1.6-2.3) mg/dL Total Bilirubin 1.1 (0.2-1.3) mg/dL AST 118 H (17-59) U/L ALT 48 (4-49) U/L Alkaline Phosphatase 93 (38-126) U/L Troponin I 0.112 H* (0.000-0.034) ng/mL Total Protein 5.7 L (6.3-8.2) g/dL Albumin 2.3 L (3.5-5.0) g/dL 06/24/21 06/24/21 Range/Units 20:24 21:25 WBC (3.8-10.6) k/uL RBC (4.30-5.90) m/uL Hgb (13.0-17.5) gm/dL Hct (39.0-53.0) % MCV (80.0-100.0) fL MCH (25.0-35.0) pg MCHC (31.0-37.0) g/dL RDW (11.5-15.5) % Plt Count (150-450) k/uL MPV Neutrophils % % Lymphocytes % % Monocytes % % Eosinophils % % Basophils % % Neutrophils # (1.3-7.7) k/uL Lymphocytes # (1.0-4.8) k/uL Monocytes # (0-1.0) k/uL Eosinophils # (0-0.7) k/uL Basophils # (0-0.2) k/uL Hypochromasia Macrocytosis PT (9.0-12.0) sec INR (<1.2) APTT (22.0-30.0) sec D-Dimer (<0.60) mg/L FEU Sample Site RADHA ABG pH 7.36 (7.35-7.45) ABG pCO2 53 H (35-45) mmHg ABG pO2 229 H (83-108) mmHg ABG HCO3 30 H (21-25) mmol/L ABG Total CO2 32 H (19-24) mmol/L ABG O2 Saturation 99.0 H (94-97) % ABG Base Excess 5.0 mmol/L Aly Test Yes VBG pH (7.31-7.41) VBG pCO2 (37-51) mmHg VBG HCO3 (24-28) mmol/L FiO2 100 % Sodium (137-145) mmol/L Potassium (3.5-5.1) mmol/L Chloride (98-107) mmol/L Carbon Dioxide (22-30) mmol/L Anion Gap mmol/L BUN (9-20) mg/dL Creatinine (0.66-1.25) mg/dL Est GFR (CKD-EPI)AfAm (>60 ml/min/1.73 sqM) Est GFR (CKD-EPI)NonAf (>60 ml/min/1.73 sqM) Glucose (74-99) mg/dL POC Glucose (mg/dL) (75-99) mg/dL POC Glu Tape Cutting Machine Operator ID Plasma Lactic Acid Osito 1.6 (0.7-2.0) mmol/L Calcium (8.4-10.2) mg/dL Magnesium (1.6-2.3) mg/dL Total Bilirubin (0.2-1.3) mg/dL AST (17-59) U/L ALT (4-49) U/L Alkaline Phosphatase (38-126) U/L Troponin I (0.000-0.034) ng/mL Total Protein (6.3-8.2) g/dL Albumin (3.5-5.0) g/dL Critical Care Time Critical Care Time: Yes Total Critical Care Time: 30 Critical Care Time: Critical Care Time 30 Critical care time was exclusive of separately billable procedures and treating other patients and teaching time. Critical care was necessary to treat or prevent imminent or life-threatening deterioration. Given the critical condition in which the patient arrived, the patient was immediately assessed by myself and the nurse, and cardiac monitoring initiated due to the potential for rapid decompensation of the patient's clinical condition. During the course of the patients stay, I spent a considerable amount of time at the bedside performing serial re-evaluations of the patient's hemodynamic and clinical status because of the recognized potential threat to life or limb in this condition. I then had a chance to review not only all of the available current laboratory and radiographic studies obtained today, but I also reviewed old records available to me at the time. Additionally, any ancillary information available including seafood fisherman records were reviewed. Se quential vital signs were obtained. Disposition Clinical Impression: Cardiac arrest with ventricular fibrillation Disposition: ADMITTED IP TO THIS HOSP Condition: Critical Procedures - [place] Protocol (Time Out) Nurse: Luis Reyes
[2021-06-25] MEDS ORDERED: metroNIDAZOLE-NS PMX 500 MG in SALINE 1 100ML.BAG IVPB SCH (16:00)
[2021-06-25 16:15] VITALS: BP 68/41; PULSE 86; RESP 22
[2021-06-26] MEDS ORDERED: FUROSEMIDE 10 MG/ML 2 ML VIAL IV SCH (09:00)
--- NOTE | 2021-06-27 14:18 | P.DS ---
<Evelyn Reyna - Last Filed: 06/27/21 13:09> Providers Expected date of discharge: 06/25/21 Hospital Course: This is an 81-year-old pleasant gentleman who was recently transferred to [facility] in [facility], he was recently admitted at [facility], June 12-, for acute syncopal event and noncompliance, chf. He is followed normally by [facility] air and water tester, and he has an ICD, from the last admission, they have noticed that his digoxin and Lasix were empty and pt play around whether he would take his Lasix or Miss his Lasix for that day., he was admitted for rhabdomyolysis, with a previous CPK of 4700, and elevation of ALT total bili and a creatinine of 1.69. He also has pulmonary edema based on last CT, in June 12, with acid with chronic bladder obstruction as well, and pulmonary artery hypertension. Not much of the history can be obtained at that time, except that he requires 14 standard drinks per week. Not a smoker, previously quit, and that he lives alone, with multifocal falls prior to his recent admission at [facility] for subacute rehab. CODE STATUS was DO NOT RESUSCITATE. However with the CODE STATUS on June 22, this was not signed I family members, and was defaulted to full code at that time. The physician order for life support from our facility to facility is not a legal document for us to follow at the senior care. Past medical history obtained, including atrial fibrillation, AV block, CK D, right bundle branch block, valvular heart disease, hypertension, with dual- chamber [employer] pacemaker placement, and a mitral valve repair. He is on Coumadin, Patient was noted to be fed by family members, as the patient was confused as his baseline status, he took 2 bites, thereafter became unresponsive at 1900, and was unconscious unresponsive with no signs of bleeding, CPR begun, and code was called, a AED applied with suctioning of secretions. Compressions and shocks were continued until EMS arrived at 0, at 1924, the patient was bleeding again, with a pulse of 64, and was subsequently transferred to the e mergency room. EMS was called in, the family was made aware,. In emergency room, patient was seen already intubated, family requests that should he have any cardiac event or cardiac arrest, that we should abandon any CPR, or chemical resuscitation. Patient is admitted to ICU, with Dr. Lee on consult, cardiology consult. Labs in the ER, shows pH of 7.36, pCO2 of 53, PaO2 of 229, total CO2 of 32 bicarb of 30, INR 3.8 WBC count of 14.5, hemoglobin 11.4, troponin of 0.112, albumin low at 2.7, glucose of 117, no pro-calcitonin was done chest x-ray CHF with pulmonary edema, EKG ventricle paced rhythm, heart rate of 60 as of 14:45 pm the family discussed with me the life support measures that are given to the patient, they have voiced their concern that this is not what the patient would have wished for, they will like to get him off the vent, they do not want to wait for few more days to address any anoxic [id number][[id number], the patient has severe cardiomyopathy in the past and would want it all be terminated, the sister and the nephew has expressed this will verbally i have reviewed records from [facility] as well to state that the patient be DNR, we have discussed this with the er physician as there is no power of attorney lawyer papers that is signed, no living will signed, no state appointed court order for me to review. but there are no living immediate family members except the sister. the sister request that a comfortable passing be made. i have the nurse discuss it with the structural steel painter for terminal wean, then comfort care measures be placed with iv morphine drip, comfort care protocol Patient on June 25. Please see nursing Dr. perkins for details. DISCHARGE DIAGNOSES Cardiac arrest with ventricular fibrillation Possible aspiration pneumonitis Acute on chronic systolic heart failure Acute hypoxic respiratory failure Cardiogenic shock, possible septic shock Sirs/sepsis secondary to possible pneumonia Elevated troponin possibly related to anoxic event, cannot rule out acute at C elevated myocardial infarction Hypercoagulation secondary to Coumadin use and sepsis/sirs Severe cardiomyopathy with ejection fraction of 15%, Recent hospitalization at [facility], for rhabdomyolysis, secondary to syncope Chronic anticoagulation for mitral valve repair Anoxic encephalopathy, Impression and plan of care have been directed as dictated by the signing physician. Evelyn Reyna nurse practitioner acting as scribe for signing physician. Patient Condition at Discharge: Undetermined Plan - Discharge Summary New Discharge Prescriptions: No Action Metoprolol Succinate (ER) [Toprol Xl] 100 mg PO BID@0900,2100 Folic Acid 1 mg PO DAILY@899 Amiodarone HCl [Pacerone] 200 mg PO BID@899,2099 Warfarin [Coumadin] 5 mg PO SUTUWETHSA@2099 Furosemide [Lasix] 40 mg PO DAILY@06 Warfarin [Coumadin] 10 mg PO MOFR@2099 Aspirin EC [Ecotrin Low Dose] 81 mg PO DAILY@08 Dorzolamide/Timolol/Pf [Dorzolamide 2%-Timolol 0.5%] 1 drop BOTH EYES BID@899,2099 Thiamine HCl [Vitamin B-1] 100 mg PO DAILY@899 Multivitamins, Thera [Multivitamin (formulary)] 1 tab PO DAILY@899 Enalapril Maleate 5 mg PO BID@899,2099 Discharge Medication List Amiodarone HCl [Pacerone] 200 mg PO BID@899,209906/25/21 [History] Aspirin EC [Ecotrin Low Dose] 81 mg PO DAILY@0806/25/21 [History] Dorzolamide/Timolol/Pf [Dorzolamide 2%-Timolol 0.5%] 1 drop BOTH EYES BID@899,209906/25/21 [History] Enalapril Maleate 5 mg PO BID@899,209906/25/21 [History] Folic Acid 1 mg PO DAILY@89906/25/21 [History] Furosemide [Lasix] 40 mg PO DAILY@59906/25/21 [History] Metoprolol Succinate (ER) [Toprol Xl] 100 mg PO BID@899,209906/25/21 [History] Multivitamins, Thera [Multivitamin (formulary)] 1 tab PO DAILY@89906/25/21 [History] Thiamine HCl [Vitamin B-1] 100 mg PO DAILY@89906/25/21 [History] Warfarin [Coumadin] 5 mg PO SUTUWETHSA@209906/25/21 [History] Warfarin [Coumadin] 10 mg PO MOFR@209906/25/21 [History] Follow up Appointment(s)/Referral(s): Dottie Quinones MD [Primary Care Provider] - 1-2 days Discharge Disposition: - Preliminary Cause of Preliminary Cause of : Cardiac arrest with ventricular fibrillation <Dottie Quinones - Last Filed: 07/06/21 19:10> Providers Date of admission: 06/24/21 22:10 Attending physician: Dottie Quinones Consults: 06/24/21 22:10 Consult Physician Stat Consulting Provider: Sourav Marquis Consult Reason/Comments: ICU Do you want consulting provider notified?: Already Contacted Consult Physician Stat Consulting Provider: Kahlil Perez Consult Reason/Comments: vfib arrest Do you want consulting provider notified?: Already Contacted Primary care physician: Dottie Quinones
== END 2021-06-25 22:55 | disposition expired ==
LOC: EC 19:52 → SUPCPDRO 19:52 → 2SICU 22:10 → 4SSUR 06-25 15:22
PROVIDERS: ADMIT Family Medicine; ATTEND Family Medicine
PROC: 3E033XZ Introduction of Vasopressor into Peripheral Vein, Percutaneous Approach (ICD-10-PCS; principal; 2021-06-24)
PROC: 02HV33Z Insertion of Infusion Device into Superior Vena Cava, Percutaneous Approach (ICD-10-PCS; 2021-06-24)
PROC: 5A1935Z Respiratory Ventilation, Less than 24 Consecutive Hours (ICD-10-PCS; 2021-06-24)
PROC: 0BH17EZ Insertion of Endotracheal Airway into Trachea, Via Natural or Artificial Opening (ICD-10-PCS; 2021-06-24)
DX: I49.01 Ventricular fibrillation (principal); A41.9 Sepsis, unspecified organism; I21.9 Acute myocardial infarction, unspecified; J96.01 Acute respiratory failure with hypoxia; R65.21 Severe sepsis with septic shock; I50.23 Acute on chronic systolic (congestive) heart failure; J69.0 Pneumonitis due to inhalation of food and vomit; G93.1 Anoxic brain damage, not elsewhere classified; I46.2 Cardiac arrest due to underlying cardiac condition; F03.90 Unspecified dementia, unspecified severity, without behavioral disturbance, psychotic disturbance, mood disturbance, and anxiety; I11.0 Hypertensive heart disease with heart failure; Z66 Do not resuscitate; Z51.5 Encounter for palliative care; T45.515A Adverse effect of anticoagulants, initial encounter; I48.91 Unspecified atrial fibrillation; I27.21 Secondary pulmonary arterial hypertension; Z95.810 Presence of automatic (implantable) cardiac defibrillator; Z95.0 Presence of cardiac pacemaker; Z91.19 Patient's noncompliance with other medical treatment and regimen; Z87.891 Personal history of nicotine dependence; Z83.3 Family history of diabetes mellitus; Z82.49 Family history of ischemic heart disease and other diseases of the circulatory system; Z79.899 Other long term (current) drug therapy; Z79.82 Long term (current) use of aspirin; Z79.01 Long term (current) use of anticoagulants; R57.0 Cardiogenic shock; I42.9 Cardiomyopathy, unspecified
CPT/HCPCS: 31500; 36415; 36556; 36600; 70450; 71045; 72020; 80053; 82533; 82803; 82805; 83605; 83735; 84145; 84484; 85025; 85379; 85610; 85730; 87040; 93005; 94002; 94003; 96365; 96366; 96368; 96374; 96375; 99291